=== PATIENT | female | born 1960 | race Asian ===

== ENCOUNTER 2023-03-15 09:58 | Outpatient (REF) | payer OTHER, SELFPAY ==
[2023-03-15 10:58] LABS: MANUAL DIFF FLAG NO
[2023-03-15 11:06] LABS: Basophils Absolute Auto 0.1 X10*3/uL (0.0-0.2); Basophils Percent Auto 1.6 % (0-2); Eosinophils Absolute Auto 0.2 X10*3/uL (0.0-0.4); Eosinophils Percent Auto 3.4 % (0-4); Hematocrit 36.9 % (37.0-47.0); Hemoglobin 12.9 g/dl (12.0-16.0); Imm Gran Abs Auto 0.01 X10*3/uL (0.00-0.03); Imm Gran Pct Auto 0.2 % (0.0-0.4); Lymphocytes Absolute Auto 1.1 X10*3/uL (1.2-4.9); Lymphocytes Percent Auto 23.7 % (20-40); Mean Corpuscular Hemoglobin 32.7 pg (27.0-33.0); Mean Corpuscular Volume 93.7 fL (80.0-98.0); Mean Platelet Volume 11.7 fL (9.4-12.3); Monocytes Absolute Auto 0.2 X10*3/uL (0.1-1.2); Monocytes Percent Auto 4.9 % (2-11); Neutrophils Percent Auto 66.2 % (45-73); Platelet Count 195 X10*3/uL (160-400); Red Blood Count 3.94 X10*6/uL (4.20-5.50); Red Cell Distribution Width 11.1 % (11.0-16.0); White Blood Count 4.5 X10*3/uL (4.8-10.8)
[2023-03-15 11:18] LABS: Alanine Aminotransferase 9 U/L (0-31); Albumin Level 4.4 g/dL (3.5-5.0); Alkaline Phosphatase 42 U/L (39-117); Anion Gap 13 (12-20); Aspartate Amino Transferase 16 U/L (5-31); Bilirubin Total 0.8 mg/dL (0.0-1.0); Blood Urea Nitrogen 16 mg/dL (9-16); C Reactive Protein 0.79 mg/dL (< or = 0.50); Calcium 8.9 mg/dL (8.4-10.2); Carbon Dioxide 26 mmol/L (22-29); Chloride 109 mmol/L (96-108); Estimated Glomerular Filt Rate > 60; Glucose Random 112 mg/dL (60-115); Lipase 39 U/L (8-78); Potassium 4.2 mmol/L (3.3-5.1); Sodium 144 mmol/L (135-145); Total Protein 6.9 g/dL (6.5-8.0)
== END 2023-03-15 09:59 | disposition home or self-care (01) ==
LOC: HO.10HDL 09:58
PROVIDERS: Visit Provider Internal Medicine
DX: R10.9 Unspecified abdominal pain (principal); K21.9 Gastro-esophageal reflux disease without esophagitis
CPT/HCPCS: 36415; 80053; 83690; 85025; 86140

== ENCOUNTER 2023-12-20 12:50 | Outpatient (REF) | payer OTHER, SELFPAY ==
--- NOTE | ~2023-12-20 | US_ITS ---
EXAMINATION: US PELVIS CLINICAL INFORMATION: Pelvic pain. LMP 10 years ago. COMPARISON: None available. TECHNIQUE: Ultrasound of the pelvis is performed using both transabdominal and transvaginal transducers along with Doppler. Transvaginal imaging is performed due to inadequate visualization transabdominally. Patient was unable to tolerate the exam/further imaging. FINDINGS: Uterus: The uterus is not visualized. Patient denies pelvic surgery. Adnexa: Neither ovary was visualized. No free fluid in the pelvis. US/US pelvic and transvaginal IMPRESSION: Limited study.
== END 2023-12-20 12:51 | disposition home or self-care (01) ==
LOC: HO.US 12:50
PROVIDERS: PCP Internal Medicine; Visit Provider Internal Medicine
DX: R10.2 Pelvic and perineal pain (principal)
CPT/HCPCS: 76830; 76856

== ENCOUNTER 2023-12-27 13:37 | Outpatient (REF) | payer OTHER, SELFPAY ==
--- NOTE | ~2023-12-27 | MM_ITS ---
EXAMINATION: MM SCREENING DIGITAL BREAST TOMOSYNTHESIS, BILATERAL CLINICAL INFORMATION: Screening. Asymptomatic. COMPARISON: Mammography: There are no prior mammograms available for comparison. TECHNIQUE: Digital breast tomosynthesis is performed in both the craniocaudal and mediolateral oblique views along with computer-aided detection (CAD). Synthesized 2D images are generated from the tomosynthesis. FINDINGS: The breasts are heterogeneously dense, which may obscure small masses (ACR BI-RADS breast composition Category c). There are no significant masses, abnormal calcifications, or other abnormalities. MM/MM tomosynthesis screening BI IMPRESSION: No mammographic evidence of malignancy. ASSESSMENT: BI-RADS BI-RADS 1 - Negative RECOMMENDATION: Routine annual mammography screening. 1 year F/U This examination should not preclude the clinical evaluation of a suspicious palpable abnormality. This patient's information was entered into a reminder system with a target due date for their next mammogram.
--- NOTE | ~2023-12-27 | MM_ITS ---
EXAMINATION: BONE DENSITOMETRY CLINICAL INDICATION: Menopausal state. COMPARISON: This is the patient's baseline examination. TECHNIQUE: Using a [employer] DXA System (software version: 13.1) manufactured by [employer], dual-energy x-ray absorptiometry was performed of the lumbar spine and left hip. The images are of good technical quality. Summary results are attached. FINDINGS: LEFT FEMUR, NECK: BMD 0.719 g/cm2, Z-score -0.5, T-score -2.3, osteopenia. LEFT FEMUR, TOTAL: BMD 0.792 g/cm2, Z-score -0.1, T-score -1.7, osteopenia. AP SPINE L1-L4: BMD 0.855 g/cm2, Z-score -0.5, T-score -2.7, osteoporosis. IDENTIFIED RISK FACTORS: Menopause, height loss, history of fracture (adult). HISTORY OF FRACTURE: Other. MEDICATIONS: None listed. MM/XR DEXA axial skeleton IMPRESSION: 1. DIAGNOSIS: Osteoporosis based on the lowest T-score value of -2.7 in the lumbar spine applying World Health Organization criteria. 2. 10-YEAR FRACTURE RISK PREDICTION, FRAX: According to the guidelines, FRAX calculation should only be performed on patients in the osteopenia bone density category. Therefore, FRAX was not performed on this patient. 3. Treatment Recommendations: NOF guidelines recommend consideration for treatment in postmenopausal women and men age 50 and older presenting with the following: -A hip or vertebral (clinical or morphometric) fracture. -T-score less than or equal to -2.5 at the femoral neck or spine after appropriate evaluation to exclude secondary causes. -Low bone mass at the hip or spine and a 10-year fracture probability by FRAX of greater than or equal to 3% for hip fracture or greater than or equal to 20% for major osteoporotic fracture based on the [place] adapted WHO algorithm. 4. Other Recommendations: All treatment decisions require clinical judgment and consideration of individual patient factors, including patient preferences, comorbidities, previous drug use, risk factors not captured in the FRAX model (e.g. frailty, falls, vitamin D deficiency, increased bone turnover, interval significant decline in bone density) and possible under or overestimation of fracture risk by FRAX. Additional medical evaluation for secondary cause of low bone mineral density may be appropriate. FUTURE SCAN RECOMMENDATION: People with diagnosed cases of osteoporosis or at high risk for fracture should have regular bone mineral density tests. For patients eligible for Medicare, routine testing is allowed once every 2 years. The testing frequency can be increased to one year for patients who have rapidly progressing disease, those who are receiving or discontinuing medical therapy to restore bone mass, or have additional risk factors.
== END 2023-12-27 13:38 | disposition home or self-care (01) ==
LOC: HO.MAMMO 13:37
PROVIDERS: PCP Internal Medicine; Visit Provider Internal Medicine
DX: Z12.31 Encounter for screening mammogram for malignant neoplasm of breast (principal); Z13.820 Encounter for screening for osteoporosis; Z78.0 Asymptomatic menopausal state
CPT/HCPCS: 77063; 77067; 77080

== ENCOUNTER → 2023-12-27 14:00 | Outpatient (BNV) | payer OTHER, SELFPAY | PROVIDERS: PCP Internal Medicine; Visit Provider Radiology Diagnostic Radiology | DX: Z12.31 Encounter for screening mammogram for malignant neoplasm of breast (principal) | CPT/HCPCS: 77063; 77067 ==

== ENCOUNTER 2024-12-31 07:03 | Outpatient (REF) | payer SELFPAY ==
[2024-12-31 07:14] LABS: MANUAL DIFF FLAG NO
[2024-12-31 07:24] LABS: Basophils Absolute Auto 0.1 X10*3/uL (0.0-0.2); Eosinophils Absolute Auto 0.2 X10*3/uL (0.0-0.4); Eosinophils Percent Auto 5.3 % (0-4); Hematocrit 39.1 % (37.0-47.0); Hemoglobin 13.3 g/dl (12.0-16.0); Imm Gran Abs Auto 0.01 X10*3/uL (0.00-0.03); Imm Gran Pct Auto 0.2 % (0.0-0.4); Lymphocytes Absolute Auto 1.4 X10*3/uL (1.2-4.9); Mean Corpuscular Hemoglobin 32.3 pg (27.0-33.0); Mean Corpuscular Volume 94.9 fL (80.0-98.0); Mean Platelet Volume 10.5 fL (9.4-12.3); Monocytes Absolute Auto 0.4 X10*3/uL (0.1-1.2); Neutrophils Absolute Auto 2.4 x10*3/uL (2.0-8.3); Neutrophils Percent Auto 53.5 % (45-73); Platelet Count 204 X10*3/uL (160-400); Red Blood Count 4.12 X10*6/uL (4.20-5.50); Red Cell Distribution Width 11.5 % (11.0-16.0); White Blood Count 4.5 X10*3/uL (4.8-10.8)
[2024-12-31 07:54] LABS: Anion Gap 9 (12-20); Blood Urea Nitrogen 16 mg/dL (9-16); Calcium 9.3 mg/dL (8.4-10.2); Carbon Dioxide 28 mmol/L (22-29); Chloride 109 mmol/L (96-108); Cholesterol 221 mg/dL (<200); Estimated Glomerular Filt Rate > 60; Glucose Random 99 mg/dL (60-115); Sodium 142 mmol/L (135-145)
[2024-12-31 08:04] LABS: Vitamin D 25-OH Total 31.4 ng/mL (>30)
== END 2024-12-31 07:04 | disposition home or self-care (01) ==
LOC: HO.LAB 07:03
PROVIDERS: PCP Internal Medicine; Visit Provider Internal Medicine
DX: I10 Essential (primary) hypertension (principal); M81.0 Age-related osteoporosis without current pathological fracture
CPT/HCPCS: 36415; 80048; 82306; 82465; 85025

== ENCOUNTER 2025-02-04 10:34 | Outpatient (AMB) | payer BC, SELFPAY ==
--- NOTE | 2025-02-04 10:36 | A.OFFPC_ITS ---
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 Accompanied by: Friend Allergies No Known Allergies Allergy (Unverified 02/04/25 10:43) Medication List - Last Reconciled 02/04/25 by Adina Franklin MD amlodipine 5 mg PO DAILY diclofenac sodium 1% (Voltaren Arthritis Pain) 2 grams topical QID gabapentin 200 mg (2 x 100 mg) PO BID PRN Tobacco use date assessed: 02/04/25 Fall risk assessment: No Falls in past year Last assessed Fall Risk: 02/04/25 Dental Screening Dental Screen Date: 02/04/25 Did you have a dental visit in the last 12 months?: Yes Did you have a dental problem in the last 6 months where you did not have access to dental care?: No HPI HPI Comments History of Present Illness Details The patient is a 65 year old female with a past medical history of GERD, hypertension, osteoporosis, headaches, presenting for follow up For the past three weeks has increasing numbness, discomfort of the right arm and hand (2nd, 3rd and tip of ring finger) and wrist. Some discomfort in hand. Denies weakness. Cooks, chops frequently, right handed. No numbness, tingling of right leg, speech issues etc. No redness or warmth. No injury Has history of mild neck pain intermittent. No radiation to shoulder or arm ROS see HPI PHYSICAL EXAM: GENERAL: Alert and oriented x 3. NAD EYES: EOMI. Anicteric. HENT: Moist mucous membranes. No scleral icterus. No cervical lymphadenopathy. LUNGS: Clear to auscultation bilaterally. CARDIOVASCULAR: Regular rate and rhythm. No murmur. No JVD. ABDOMEN: Soft, non-tender +bs EXTREMITIES: No edema. Non-tender. MSK: positive tinels. Normal phalens, 5/5 strength at shoulder, elbow and wrist. SKIN: No rashes or lesions. Warm. NEUROLOGIC: No focal neurological deficits. CN II-XII grossly intact PSYCHIATRIC: Cooperative. Appropriate mood and affect [facility] Family History Mother Diabetes Hypertension Father No problems noted. 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 1. Little interest or pleasure in doing things: not at all 2. Feeling down, depressed, or hopeless: not at all 3. Trouble falling or staying asleep, or sleeping too much: not at all 4. Feeling tired or having little energy: not at all 5. Poor appetite or overeating: not at all 6. Feeling bad about yourself - or that you are a failure or have let yourself or your family down: not at all 7. Trouble concentrating on things, such as reading the newspaper or watching television: not at all 8. Moving or speaking so slowly that other people could have noticed. Or the opposite - being so fidgety or restless that you have been moving around a lot more than usual: not at all 9. Thoughts that you would be better off or of hurting yourself in some way: not at all Total score: 0 Depression Screening Interpretation: Negative Depression Screening Done: Yes 07236 - PHQ-9 Billing: Yes Source: Developed by Drs. Mat Bolanos, Yanci Salvador, Tereso Mora and colleagues, with an educational debbi from [employer]. Thrive Questionnaire Date Thrive assessed: 02/04/25 I am a: Patient What is your living situation today?: I have a steady place to live Within the past 12 months, did the food you bought not last and you didn't have the money to get more?: Never true Within the past 12 months, did you worry whether your food would run out before you got money to buy more?: Never true Do you have trouble paying for medicines?: No Do you have trouble getting transportation to medical appointments?: No Do you have trouble paying your heating and electricity bill?: No Do you have trouble taking care of your child, family member or friend?: No Do you have trouble with day-to-day activities such as bathing, preparing meals, shopping, managing finances, etc.?: No Are you currently unemployed and looking for a job?: No Are you interested in more education?: No THRIVE Score: 0 AUDIT C Alcohol Use Questionnaire (AUDIT-C) 1. How often do you have a drink containing alcohol?: Never 3. How often do you have six or more drinks on one occasion?: Never Total Score: 0 DAIANA-7 AMB Questionnaire DAIANA-7 Date DAIANA - 7 assessed: 02/04/25 Feeling nervous, anxious, or on edge: 0 = Not at all Not being able to stop or control worryin = Not at all Worrying too much about different things: 0 = Not at all Trouble relaxin = Not at all Being so restless that it is hard to sit still: 0 = Not at all Becoming easily annoyed or irritable: 0 = Not at all Feeling afraid as if something awful might happen: 0 = Not at all Total DAIANA-7 score (0-4 normal; 5-9 mild; 10-14 moderate; 15-21 severe): 0 Source: Developed by Drs. Mat Bolanos, Yanci Salvador, Tereso Mora and colleagues, with an educational debbi from [employer]. Physical exam (Primary Care) Vital Signs: Last Vital Signs Temp 97.5 F 02/04/25 10:38 Pulse 68 02/04/25 10:38 Resp 14 02/04/25 10:38 BP 116/70 02/04/25 10:38 Pulse Ox 98 02/04/25 10:38 Oxygen Delivery Method Room Air 02/04/25 10:38 Tobacco/Smoking Status: Tobacco use Status Tobacco use date assessed 02/04/25 02/04/25 10:47 Patient Tobacco Use Status Never used Tobacco 02/04/25 10:47 PHQ-9: PHQ-9 Score PHQ-9: Total score 0 02/04/25 13:41 Depression Screening Interpretation: Negative Thrive Assessment: Date of Thrive Assessment Date Thrive assessed 02/04/25 02/04/25 10:47 Coding Level of Care Code Est Pt Level 4 (87991) Complex EM visit Add On G2211 Diagnoses Right carpal tunnel syndrome G56.01 Additional Codes PHQ-9 - 12452 - PHQ-9 Billing: Yes ([id number]) Assessment & Plan Assessment & Plan (1) Right carpal tunnel syndrome: Code(s): G56.01 - Carpal tunnel syndrome, right upper limb Category: Medical Plan: Likely right carpal tunnel though may be some component of cervical radiculopathy, OA. Xrays ordered Declines EMG Start voltaren, gabapentin prn referral ortho Exercises and splint recommended Orders: Orders XR cervical spine 4V Today G56.01 - Carpal tunnel syndrome, right upper limb, M54.2 - Cervicalgia, R20.0 - Anesthesia of skin XR hand RT min 3V Today G56.01 - Carpal tunnel syndrome, right upper limb, M54.2 - Cervicalgia, R20.0 - Anesthesia of skin Referrals Orthopedics Referral R20.0 - Anesthesia of skin Medications: New diclofenac sodium 1% (Voltaren Arthritis Pain) apply to single elbow, wrist or hand; for hand includes palm/fingers/back of hand 2 grams topical QID 100 grams 3RF gabapentin 200 mg (2 x 100 mg) PO BID PRN 180 caps 3RF arm pain and numbness
[2025-02-04 10:38] VITALS: BP 116/70; PULSE 68; RESP 14; TEMP 36.4; O2SAT 98
== END 2025-02-04 11:22 | disposition home or self-care (01) ==
LOC: HO.HMCHD 10:34
PROVIDERS: PCP Internal Medicine; Visit Provider Internal Medicine
DX: G56.01 Carpal tunnel syndrome, right upper limb (principal)

== ENCOUNTER → 2025-02-04 10:34 | Outpatient (BNVA) | payer BC, SELFPAY | PROVIDERS: PCP Internal Medicine; Visit Provider Internal Medicine | DX: K21.9 Gastro-esophageal reflux disease without esophagitis (principal); I10 Essential (primary) hypertension; M81.0 Age-related osteoporosis without current pathological fracture; R51.9 Headache, unspecified; G56.01 Carpal tunnel syndrome, right upper limb; R20.0 Anesthesia of skin; M54.2 Cervicalgia | CPT/HCPCS: 96127 ==

== ENCOUNTER 2025-07-29 09:09 | Outpatient (AMB) | payer BC, OTHER, SELFPAY ==
--- NOTE | 2025-07-29 08:56 | A.OFFPC_ITS ---
Vital Signs 07/29/25 09:19 Height 5 ft 2 in Weight 108 lb BMI 19.8 BP 120/80 Blood Pressure Location Lt brachial Position Sitting Pulse 68 Pulse Source Pulse Oximeter Temp 97.8 F Temp Source Temporal Artery Scan Pulse Oximetry (%) 98 Oxygen Delivery Method Room Air Intake Visit Reasons: Bone density results Bi Specialist Required: No Accompanied by: Self / Same As Patient Allergies No Known Allergies Allergy (Verified 07/29/25 08:56) Medication List - Last Reconciled 07/29/25 by EVE Jalloh amlodipine 5 mg PO DAILY calcium carb,glucon-vitamin D2 500 mg-5 mcg (200 unit) 1 tab PO BID Tobacco use date assessed: 07/29/25 Fall risk assessment: No Falls in past year Last assessed Fall Risk: 07/29/25 Dental Screening Dental Screen Date: 07/29/25 Did you have a dental visit in the last 12 months?: Yes Did you have a dental problem in the last 6 months where you did not have access to dental care?: No HPI HPI Comments History of Present Illness Details The patient is a 65-year-old female presenting for management of hypertension, carpal tunnel syndrome, and osteoporosis, along with preventative care measures. The patient has been taking amlodipine for hypertension, which she reports is working well without any issues. Her BP today was 120/80. She has a history of carpal tunnel syndrome, for which she received multiple injections in [place]. Despite these interventions, she continues to experience numbness, particularly during sleep, but denies any weakness or dropping objects. She is no longer using Diclofenac gel or taking Gabapentin. She would like to see Orthopedics. The patient also reports a diagnosis of osteoporosis and has been receiving Prolia injections every six months, which were administered in [place]. She started in January. She has not been taking calcium or vitamin D supplements regularly, although she recently started taking vitamin D 1000 IU. In terms of preventative care, she is due for a mammogram, having last had one in December 2023. She has not had a colonoscopy but did undergo a gastroscopy in [place] in January 2025. . [facility] Medical History (Updated 07/29/25 @ 09:58 by EVE Jalloh) Hypertension Osteoporosis Family History Mother Diabetes Hypertension Father No problems noted. 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 1. Little interest or pleasure in doing things: not at all 2. Feeling down, depressed, or hopeless: not at all 3. Trouble falling or staying asleep, or sleeping too much: not at all 4. Feeling tired or having little energy: not at all 5. Poor appetite or overeating: not at all 6. Feeling bad about yourself - or that you are a failure or have let yourself o r your family down: not at all 7. Trouble concentrating on things, such as reading the newspaper or watching television: not at all 8. Moving or speaking so slowly that other people could have noticed. Or the opposite - being so fidgety or restless that you have been moving around a lot more than usual: not at all 9. Thoughts that you would be better off or of hurting yourself in some way: not at all Total score: 0 Source: Developed by Drs. Mat Bolanos, Yanci Salvador, Tereso Mora and colleagues, with an educational debbi from [employer]. Thrive Questionnaire Date Thrive assessed: 07/29/25 I am a: Patient Within the past 12 months, did the food you bought not last and you didn't have the money to get more?: Never true Within the past 12 months, did you worry whether your food would run out before you got money to buy more?: Never true Do you have trouble paying for medicines?: No Do you have trouble getting transportation to medical appointments?: No Do you have trouble paying your heating and electricity bill?: No Do you have trouble taking care of your child, family member or friend?: No Do you have trouble with day-to-day activities such as bathing, preparing meals, shopping, managing finances, etc.?: No Are you currently unemployed and looking for a job?: No Are you interested in more education?: No THRIVE Score: 0 AUDIT C Alcohol Use Questionnaire (AUDIT-C) 1. How often do you have a drink containing alcohol?: Never 3. How often do you have six or more drinks on one occasion?: Never Total Score: 0 DAIANA-7 AMB Questionnaire DAIANA-7 Date DAIANA - 7 assessed: 07/29/25 Feeling nervous, anxious, or on edge: 0 = Not at all Not being able to stop or control worryin = Not at all Worrying too much about different things: 0 = Not at all Trouble relaxin = Not at all Being so restless that it is hard to sit still: 0 = Not at all Becoming easily annoyed or irritable: 0 = Not at all Feeling afraid as if something awful might happen: 0 = Not at all Total DAIANA-7 score (0-4 normal; 5-9 mild; 10-14 moderate; 15-21 severe): 0 Source: Developed by Drs. Mat Bolanos, Yanci Salvador, Tereso Mora and colleagues, with an educational debbi from [employer]. Review of Systems Const Details: CONSTITUTIONAL Negative HEAD/NECK Negative EAR/NOSE/MOUTH/THROAT Negative RESPIRATORY Negative CARDIOVASCULAR Negative GASTROINTESTINAL Negative NEUROLOGICAL Reports numbness in the hands, particularly during sleep. Denies weakness or dropping objects. PSYCHIATRIC Negative Physical exam (Primary Care) Vital Signs: Last Vital Signs Temp 97.8 F 07/29/25 09:19 Pulse 68 07/29/25 09:19 BP 120/80 07/29/25 09:19 Pulse Ox 98 07/29/25 09:19 Oxygen Delivery Method Room Air 07/29/25 09:19 BMI result Body Mass Index 19.8 GENERAL Well developed, Well nourished, in no apparent distress HEENT Head-Normocephalic Eyes- PERRLA, EOMI, Conjuctiva clear, lids WNL Ears- Canals clear, TMs WNL Mouth/Throat-No lesions, no erythema, no exudate Neck- Supple, No lymphadenopathy, thyroid WNL RESPIRATORY Normal I:E, Clear to auscultation CARDIOVASCULAR Regular, rate and rhthym, No murmurs or rubs MUSCULOSKELETAL right wrist- Full ROM, nontender, phalen and tinnel positive. NEUROLOGICAL Gait normal PSYCHIATRIC Oriented to person, place and time Mood and affect WNL Appearance WNL Speech WNL Thought processes WNL Tobacco/Smoking Status: Tobacco use Status Tobacco use date assessed 07/29/25 07/29/25 09:01 Patient Tobacco Use Status Never used Tobacco 07/29/25 09:01 e-Cigarette/Vaping Use Never Used 07/29/25 09:01 PHQ-9: PHQ-9 Score PHQ-9: Total score 0 07/29/25 09:26 Thrive Assessment: Date of Thrive Assessment Date Thrive assessed 07/29/25 07/29/25 09:01 Results Reviewed Results Reviewed: EXAMINATION: BONE DENSITOMETRY CLINICAL INDICATION: Menopausal state. COMPARISON: This is the patient's baseline examination. TECHNIQUE: Using a [employer] DXA System (software version: 13.1) manufactured by [employer], dual-energy x-ray absorptiometry was performed of the lumbar spine and left hip. The images are of good technical quality. Summary results are attached. FINDINGS: LEFT FEMUR, NECK: BMD 0.719 g/cm2, Z-score -0.5, T-score -2.3, osteopenia. LEFT FEMUR, TOTAL: BMD 0.792 g/cm2, Z-score -0.1, T-score -1.7, osteopenia. AP SPINE L1-L4: BMD 0.855 g/cm2, Z-score -0.5, T-score -2.7, osteoporosis. IDENTIFIED RISK FACTORS: Menopause, height loss, history of fracture (adult). HISTORY OF FRACTURE: Other. MEDICATIONS: None listed. MM/XR DEXA axial skeleton IMPRESSION: 1. DIAGNOSIS: Osteoporosis based on the lowest T-score value of -2.7 in the lumbar spine applying World Health Organization criteria. 2. 10-YEAR FRACTURE RISK PREDICTION, FRAX: According to the guidelines, FRAX calculation should only be performed on patients in the osteopenia bone density category. Therefore, FRAX was not performed on this patient. 3. Treatment Recommendations: NOF guidelines recommend consideration for treatment in postmenopausal women and men age 50 and older presenting with the following: -A hip or vertebral (clinical or morphometric) fracture. -T-score less than or equal to -2.5 at the femoral neck or spine after appropriate evaluation to exclude secondary causes. -Low bone mass at the hip or spine and a 10-year fracture probability by FRAX of greater than or equal to 3% for hip fracture or greater than or equal to 20% for major osteoporotic fracture based on the [place] adapted WHO algorithm. 4. Other Recommendations: All treatment decisions require clinical judgment and consideration of individual patient factors, including patient preferences, comorbidities, previous drug use, risk factors not captured in the FRAX model (e.g. frailty, falls, vitamin D deficiency, increased bone turnover, interval significant decline in bone density) and possible under or overestimation of fracture risk by FRAX. Additional medical evaluation for secondary cause of low bone mineral density may be appropriate. Coding Level of Care Code Established Pt Est Pt Level 4 (41595) Patient Type Established Diagnoses Age-related osteoporosis without current pathological fracture M81.0 Osteoporosis type: age-related Presence of current pathological fracture: without current pathological fracture Primary hypertension I10 Hypertension type: primary hypertension Right carpal tunnel syndrome G56.01 Health care maintenance Z00.00 Time Spent (min) 35 Comment Time spent on chart review, H&P, Patient education and orders and follow up Assessment & Plan Assessment & Plan (1) Osteoporosis: Comment: Patient started on Prolia in [place] in January Code(s): M81.0 - Age-related osteoporosis without current pathological fracture Category: Medical Qualifiers: Osteoporosis type: age-related Presence of current pathological fracture: without current pathological fracture Qualified Code(s): M81.0 - Age- related osteoporosis without current pathological fracture Plan: The patient will be referred to a specialist for osteoporosis management, including continuing of Prolia injections and initiation of calcium and vitamin D supplementation. (2) Hypertension: Comment: BP today was 120/80 Code(s): I10 - Essential (primary) hypertension Category: Medical Qualifiers: Hypertension type: primary hypertension Qualified Code(s): I10 - Essential (primary) hypertension Plan: The patient will continue with amlodipine for hypertension management, as it is effective without any reported issues. Patient to follow up in 6 months or sooner if needed (3) Right carpal tunnel syndrome: Code(s): G56.01 - Carpal tunnel syndrome, right upper limb Category: Medical Plan: Treatment/evaluation options discussed with patient at length. The patient will be referred to an orthopedist for further evaluation and management, which may include additional injections or physical therapy. She declines medication at t his time. Patient to follow up as needed if symptoms persist or worsen. (4) Health care maintenance: Code(s): Z00.00 - Encounter for general adult medical examination without abnormal findings Plan: - Mammogram due as part of routine screening - Initiation of calcium and vitamin D supplementation discussed Orders: Orders MM screening mammo BI Today Z12.31 - Encounter for screening mammogram for malignant neoplasm of breast Referrals Orthopedics Referral G56.01 - Carpal tunnel syndrome, right upper limb Medications: New calcium carb,glucon-vitamin D2 500 mg-5 mcg (200 unit) 1 tab PO BID 180 tabs 3RF amlodipine 5 mg PO DAILY 90 tabs 1RF
[2025-07-29 09:19] VITALS: BP 120/80; PULSE 68; TEMP 36.6; O2SAT 98; BMI 19.8
== END 2025-07-29 09:40 | disposition home or self-care (01) ==
LOC: HO.HMCHD 09:09
PROVIDERS: PCP Internal Medicine; Visit Provider Physician Assistant Medical
DX: M81.0 Age-related osteoporosis without current pathological fracture (principal); I10 Essential (primary) hypertension; G56.01 Carpal tunnel syndrome, right upper limb

== ENCOUNTER 2025-08-19 14:23 | Outpatient (AMB) | payer MEDICARE, MEDICAID, SELFPAY ==
--- NOTE | 2025-08-19 14:26 | MHC.OFFVIS ---
Vital Signs 08/19/25 14:29 Height 4 ft 11.84 in Weight 107 lb 9.369 oz BMI 21.1 BP 124/76 Blood Pressure Location Lt brachial Position Sitting Pulse 77 Pulse Source Pulse Oximeter Pulse Oximetry (%) 97 Oxygen Delivery Method Room Air Intake Visit Reasons: Age-related osteoporosis Intake Note: New patient internally referred by PCP for Osteoporosis, last DEXA was on 12/27/2023. Teacher Dancing Required: Yes Teacher Dancing Language: Polish Teacher Dancing Services: Teacher Dancing Present Teacher Dancing Name: Minda [phone] Information Interpreted: non-clinical & clinical Accompanied by: Self / Same As Patient Allergies No Known Allergies Allergy (Verified 08/19/25 14:30) HPI Comments Details: 65 YO [place] Female is seen in consultation at the request of PCP for Osteoporosis. First diagnosed in 4 yrs ago . Received treatment in the past with prolia after 1 shot in 2021. In January 2025 another shot of Prolia Tolerated treatment well without complication. history of pathologic fracture in ankle at age 57 fell down steps but no ONJ. Has several servings of dietary calcium per day in the form of various . Takes Calcium supplement 1000 mg daily in divided doses. Takes 400 IU of Vitamin D daily. Denies ever using PPI, anticoagulant, antiepileptic or glucocorticoid medication. Not Does weight bearing exercise . 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 UTD on dental cleanings and sees dentist every 6 months. No planned upcoming dental work or extractions. No tobacco use or heavy ETOH use FINDINGS: LEFT FEMUR, NECK: BMD 0.719 g/cm2, Z-score -0.5, T-score -2.3, osteopenia. LEFT FEMUR, TOTAL: BMD 0.792 g/cm2, Z-score -0.1, T-score -1.7, osteopenia. AP SPINE L1-L4: BMD 0.855 g/cm2, Z-score -0.5, T-score -2.7, osteoporosis. IDENTIFIED RISK FACTORS: Menopause, height loss, history of fracture (adult). HISTORY OF FRACTURE: Other. MEDICATIONS: None listed. MM/XR DEXA axial skeleton IMPRESSION: 1. DIAGNOSIS: Osteoporosis based on the lowest T-score value of -2.7 in the lumbar spine applying World Health Organization criteria. DXA dated 12/27/23: Labs: [facility] Medical History (Updated 07/29/25 @ 09:58 by EVE Jalloh) Hypertension Osteoporosis Surgical History No pertinent past surgical history Family History Mother Diabetes Hypertension Father No problems noted. 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 Absence of blue sclera. Absence of kyphosis. Thyroid gland is of nl size and weighs 15 gms. There are no thyroid nodules palpated. Lungs CTA. Heart S1 S2 Reg R/R Abdominal exam benign. Muscle strength 5/5 . Examination of spine reveals absence of tenderness on palpation Assessment & Plan Assessment & Plan (1) Osteoporosis: Comment: Patient started on Prolia in [place] in January Code(s): M81.0 - Age-related osteoporosis without current pathological fracture Category: Medical Qualifiers: Osteoporosis type: age-related Presence of current pathological fracture: without current pathological fracture Qualified Code(s): M81.0 - Age-related osteoporosis without current pathological fracture Plan: This is a 65-year-old [place] female with a history of osteoporosis with partial secondary workup. Currently being treated with Prolia started Plan is to complete the secondary workup by checking a phosphorus level, TSH, free T4, 24 hour urine for calcium and creatinine, urine immunofixation. Will ensure 1200 mg of calcium and vitamin D3 supplementation and continue present supplementation. Assuming secondary workup was negative would continue Prolia for now and repeat DEXA in 4 months. Depending on DEXA, could transition to oral or intravenous bisphosphonate at that point in 6 months Orders: Orders Calcium, 24 Hr Ur Today M81.0 - Age-related osteoporosis without current pathological fracture Immunofixation, Random Urine Today M81.0 - Age-related osteoporosis without current pathological fracture Basic Metabolic Panel Today M81.0 - Age-related osteoporosis without current pathological fracture Albumin Level Today M81.0 - Age-related osteoporosis without current pathological fracture Phosphorus Today M81.0 - Age-related osteoporosis without current pathological fracture Thyroid Stimulating Hormone Today M81.0 - Age-related osteoporosis without current pathological fracture Free T4 (Free Thyroxine) Today M81.0 - Age-related osteoporosis without current pathological fracture Creatinine, 24 Hr Group Today M81.0 - Age-related osteoporosis without current pathological fracture Calcium Today M81.0 - Age-related osteoporosis without current pathological fracture XR DEXA axial skeleton 5 Months M81.0 - Age-related osteoporosis without current pathological fracture Coding Level of Care Code New Pt Level 4 (17313) Diagnoses Age-related osteoporosis without current pathological fracture M81.0 Osteoporosis type: age-related Presence of current pathological fracture: without current pathological fracture
[2025-08-19 14:29] VITALS: BP 124/76; PULSE 77; O2SAT 97; BMI 21.1
== END 2025-08-19 15:17 | disposition home or self-care (01) ==
PROVIDERS: PCP Internal Medicine; Visit Provider Internal Medicine Endocrinology, Diabetes & Metabolism
DX: M81.0 Age-related osteoporosis without current pathological fracture (principal)
CPT/HCPCS: 99204

== ENCOUNTER → 2025-08-19 14:23 | Outpatient (BNVA) | payer MEDICARE, OTHER, SELFPAY | PROVIDERS: PCP Internal Medicine; Visit Provider Internal Medicine Endocrinology, Diabetes & Metabolism | DX: M81.0 Age-related osteoporosis without current pathological fracture (principal) | CPT/HCPCS: 99202 ==

== ENCOUNTER 2025-08-20 07:09 | Outpatient (REF) | payer MEDICARE, OTHER, SELFPAY ==
[2025-08-20 08:34] LABS: Albumin Level 4.5 g/dL (3.5-5.0); Anion Gap 10 (12-20); Blood Urea Nitrogen 19 mg/dL (9-16); Calcium 8.9 mg/dL (8.4-10.2); Carbon Dioxide 29 mmol/L (22-29); Chloride 109 mmol/L (96-108); Estimated Glomerular Filt Rate > 60; Potassium 4.0 mmol/L (3.3-5.1); Sodium 144 mmol/L (135-145)
[2025-08-20 09:14] LABS: Free T4 (Free Thyroxine) 1.04 ng/dL (0.71-1.85); Thyroid Stimulating Hormone 2.03 uIU/mL (0.32-4.0)
== END 2025-08-20 07:10 | disposition home or self-care (01) ==
LOC: HO.LAB 07:09
PROVIDERS: Internal Medicine Endocrinology, Diabetes & Metabolism; PCP Physician Assistant; Visit Provider Internal Medicine Rheumatology
DX: M81.0 Age-related osteoporosis without current pathological fracture (principal); Z13.29 Encounter for screening for other suspected endocrine disorder
CPT/HCPCS: 80048; 82040; 84100; 84439; 84443; 86335

== ENCOUNTER 2025-08-23 04:30 | Outpatient (REF) | payer MEDICARE, OTHER, SELFPAY ==
[2025-08-23 11:07] LABS: Creatinine, mg/dL 44.96
[2025-08-23 12:35] LABS: Total Volume 24 Hour Urine 1755 mL
[2025-08-26 18:54] LABS: Calcium/Creatinine Ratio 173 mg/g creat (30-275); Creatinine 24Hr Urine 0.85 g/24 h (0.50-2.15)
== END 2025-08-23 04:31 | disposition home or self-care (01) ==
LOC: HO.LNP 04:30
PROVIDERS: Visit Provider Internal Medicine Endocrinology, Diabetes & Metabolism
DX: M81.0 Age-related osteoporosis without current pathological fracture (principal)
CPT/HCPCS: 82340; 82570

== ENCOUNTER 2025-08-26 09:58 | Outpatient (AMB) | payer MEDICARE, SELFPAY ==
--- NOTE | 2025-08-26 10:27 | AM.OFFVISNUR ---
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 Pt stated she received her last injection in [place] in January. She reported no adverse reactions from previous injection. Pt tolerated injection well and pt stayed for 15 mins following injection. No adverse reactions reported or observed. Pt had no further questions at this time. Assessment & Plan Assessment & Plan Orders: Orders AMB Denosumab Injection Practice Supplied Today M81.0 - Age-related osteoporosis without current pathological fracture Coding
== END 2025-08-26 10:25 | disposition home or self-care (01) ==
LOC: HO.ENCR 09:59
PROVIDERS: PCP Physician Assistant; Visit Provider Internal Medicine Endocrinology, Diabetes & Metabolism
DX: M81.0 Age-related osteoporosis without current pathological fracture (principal)

== ENCOUNTER → 2025-08-26 09:58 | Outpatient (BNVA) | payer MEDICARE, OTHER, SELFPAY | PROVIDERS: PCP Physician Assistant; Visit Provider Internal Medicine Endocrinology, Diabetes & Metabolism | DX: M81.0 Age-related osteoporosis without current pathological fracture (principal); Z79.620 Long term (current) use of immunosuppressive biologic | CPT/HCPCS: 96372; J0897 ==